=== PATIENT | female | born 1985 | race Two or more races ===

== ENCOUNTER 2023-04-17 16:08 | Emergency (ER) | payer OTHER ==
[~2023-04-17] VITALS: Ht 149.9 cm; Wt 59.0 kg
[2023-04-17] MEDS ORDERED: SYNTHROID50 MCG PO (16:15)
[2023-04-17] MEDS ORDERED: PROMETRIUM200 MG PO (16:16)
[2023-04-17 17:09] LABS: HEMATOCRIT 39.2 % (36.0-45.00); HEMOGLOBIN 13.2 g/dL (12.0-15.00); MEAN CELL VOLUME 87.6 fL (80.00-100.00); MEAN CORPUSCULAR HEMOGLOBIN 29.4 pg (27.00-32.0); MEAN CORPUSCULAR HGB CONC 33.6 g/dl (32.0-36.0); PLATELET COUNT 204 K/uL (150-450); RED BLOOD COUNT 4.48 M/uL (4.00-6.00); RED CELL DISTRIBUTION WIDTH 13.9 % (11.5-14.5)
[2023-04-17 17:10] LABS: URINE APPEARANCE Cloudy; URINE BILIRRUBIN Small (NEGATIVE); URINE BLOOD Large; URINE COLOR Red; URINE GLUCOSE Negative (NEGATIVE); URINE LEUKOCYTE Moderate; URINE NITRATE Negative; URINE UROBILINOGEN 0.2 E.U./dl
[2023-04-17 17:13] LABS: URINE EPITHELIAL CELLS 10.3 uL (0.0-38.8); URINE WBC 53.1 uL (0.0-23.2)
[2023-04-17 17:23] LABS: URINE PROTEIN 100 (NEGATIVE); URINE RBC > 10558.9 uL (0.0-20.8)
[2023-04-17 17:29] LABS: INR 1.02; PARTIAL THROMBOPLASTIN TIME 25.9 SECONDS (22.0-34.0); PROTHROMBIN TIME 10.7 SECONDS (9.0-11.5)
[2023-04-17 17:48] LABS: CALCIUM 8.8 mg/dL (8.5-10.1); CREATININE SERUM 0.94 mg/dL (0.55-1.02); POTASSIUM 3.72 mEq/L (3.5-5.1)
== END 2023-04-17 20:07 | disposition home or self-care (01) ==
LOC: ER 16:08
PROVIDERS: General Practice
DX: O20.8 Other hemorrhage in early pregnancy (principal); Z3A.01 Less than 8 weeks gestation of pregnancy; E03.9 Hypothyroidism, unspecified

== ENCOUNTER 2023-11-22 15:26 | Outpatient (CLI) | payer OTHER ==
[~2023-11-22 15:26] MED LIST: PROMETRIUM200 MG PO; SYNTHROID50 MCG PO
== END 2023-11-22 16:27 | disposition home or self-care (01) ==
LOC: NST 15:26
PROVIDERS: ATTEND Obstetrics & Gynecology Gynecology
DX: Z34.83 Encounter for supervision of other normal pregnancy, third trimester (principal)

== ENCOUNTER 2023-11-29 09:30 | Inpatient (IN) | payer OTHER ==
[~2023-11-29] VITALS: Ht 149.9 cm; Wt 60.3 kg
[2023-11-29 11:07] LABS: HEMATOCRIT 37.9 % (36.0-45.00); MEAN CELL VOLUME 84.1 fL (80.00-100.00); MEAN CORPUSCULAR HEMOGLOBIN 28.8 pg (27.00-32.0); MEAN CORPUSCULAR HGB CONC 34.3 g/dl (32.0-36.0); PLATELET COUNT 168 K/uL (150-450); RED BLOOD COUNT 4.51 M/uL (4.00-6.00)
[2023-11-29 11:09] LABS: PH,URINE 6.5 (5.0-8.0); URINE APPEARANCE Clear; URINE BILIRRUBIN Negative (NEGATIVE); URINE BLOOD Negative; URINE COLOR Yellow; URINE GLUCOSE Negative (NEGATIVE); URINE KETONE Negative (NEGATIVE); URINE LEUKOCYTE Negative; URINE NITRATE Negative; URINE PROTEIN Negative (NEGATIVE); URINE UROBILINOGEN 0.2 E.U./dl
[2023-11-29 11:11] LABS: URINE BACTERIA 396.8 uL (0.0-1933); URINE EPITHELIAL CELLS 22.5 uL (0.0-38.8); URINE RBC 2.2 uL (0.0-20.8); URINE WBC 12.2 uL (0.0-23.2)
[2023-11-29 11:56] LABS: ALBUMIN 2.9 gm/dL (3.4-5.0); BILIRUBIN TOTAL 0.46 mg/dL (0.3-1.2); CALCIUM 9.3 mg/dL (8.5-10.1); CREATININE SERUM 0.89 mg/dL (0.55-1.02); GFR 71.37; GLOBULINA 3.7 G/DL (2.4-3.5); POTASSIUM 4.66 mEq/L (3.5-5.1); TOTAL PROTEIN 6.6 gm/dL (6.4-8.2)
[2023-11-29 12:06] LABS: INR < 0.93; PARTIAL THROMBOPLASTIN TIME 24.1 SECONDS (22.0-34.0)
[2023-11-29 12:07] LABS: PROTHROMBIN TIME 8.9 SECONDS (9.0-11.5)
[2023-12-08] MEDS ORDERED: PRENATAL + DHA1 EAC1 PO (07:17)
[2023-12-08] MEDS ORDERED: OXYTOCIN 10 UNITS/ML VIAL ONE ×4 (12:15→20:21)
[2023-12-08] MEDS ORDERED: ERYTHROMYCIN BASE 1 GM TUBE OP ONE ×3 (12:16→15:25)
[2023-12-08] MEDS ORDERED: CITRIC ACID/SODIUM CITRATE 30 ML BLIST.PACK PO ONE (12:19)
[2023-12-08] MEDS ORDERED: CEFAZOLIN SODIUM 1,000 MG VIAL ONE (12:19)
[2023-12-08] MEDS ORDERED: MORPHINE SULFATE 4 MG/ML CARTRIDGE IV PRN (17:15)
[2023-12-08] MEDS ORDERED: OXYTOCIN 1,000 ML IV NR (17:15)
[2023-12-08] MEDS ORDERED: RINGERS SOLUTION,LACTATED 1,000 ML IV SCH (17:15)
[2023-12-08] MEDS ORDERED: ONDANSETRON HCL 2 MG/ML VIAL IV SCH (18:00)
[2023-12-08] MEDS ORDERED: KETOROLAC TROMETHAMINE 30 MG VIAL IV SCH (18:00)
[2023-12-08] MEDS ORDERED: ACETAMINOPHEN 500 MG GEL..CAP PO SCH (18:00)
[2023-12-08] MEDS ORDERED: KETOROLAC TROMETHAMINE 30 MG VIAL ONE (19:47)
[2023-12-09] MEDS ORDERED: GABAPENTIN 300 MG CAPSULE PO SCH (01:00)
[2023-12-09] MEDS ORDERED: SIMETHICONE 125 MG CAPSULE PO SCH (01:00)
[2023-12-09 04:52] LABS: HEMATOCRIT 32.6 % (36.0-45.00); HEMOGLOBIN 10.9 g/dL (12.0-15.00); MEAN CORPUSCULAR HEMOGLOBIN 28.2 pg (27.00-32.0); MEAN CORPUSCULAR HGB CONC 33.6 g/dl (32.0-36.0); RED BLOOD COUNT 3.88 M/uL (4.00-6.00); RED CELL DISTRIBUTION WIDTH 14.2 % (11.5-14.5)
[2023-12-09 04:59] LABS: PLATELET COUNT 120 K/uL (150-450)
[2023-12-09] MEDS ORDERED: KETOROLAC TROMETHAMINE 10 MG TABLET PO SCH (06:00)
[2023-12-09] MEDS ORDERED: OxyCODONE HCL 5 MG TABLET (ROXICODONE) PO PRN (08:00)
[2023-12-09] MEDS ORDERED: DOCUSATE SODIUM 100MG CAP PO SCH (09:00)
[2023-12-10] MEDS ORDERED: FF) RHO(D) IMMUNE GLOBULIN (POM) IM ONE (08:15)
== END 2023-12-11 14:19 | disposition home or self-care (01) | DRG 788 ==
LOC: O/R 12-08 06:51 → OB/GYN 12-08 07:00
PROVIDERS: Obstetrics & Gynecology; ADMIT Obstetrics & Gynecology Gynecology; ATTEND Obstetrics & Gynecology Gynecology
PROC: 4A1HXCZ Monitoring of Products of Conception, Cardiac Rate, External Approach (ICD-10-PCS; 2023-12-08)
PROC: 10D00Z1 Extraction of Products of Conception, Low, Open Approach (ICD-10-PCS; principal; 2023-12-08 08:50)
DX: O82 Encounter for cesarean delivery without indication (principal); Z3A.39 39 weeks gestation of pregnancy; Z37.0 Single live birth; Z20.822 Contact with and (suspected) exposure to COVID-19